=== PATIENT | male | born 1985 | race Caucasian/White ===

== ENCOUNTER 2017-09-25 11:09 | Day surgery (SDC) | payer MEDICAID ==
[~2017-09-25] VITALS: Ht 185.4 cm; Wt 125.2 kg
[~2017-09-25 11:09] MED LIST: [UNRECOGNIZED DRUG - CODE] PO
[2017-09-25] MEDS ORDERED: LACTATED RINGERS 1,000 ML IV SCH (12:03)
[2017-09-25 12:25] VITALS: BP 114/81
[2017-09-25] MEDS ORDERED: BUPIVACAINE 0.25% ONE (12:30)
[2017-09-25] MEDS ORDERED: LIDOCAINE-MPF 1%, 2ML INFIL ONE (12:30)
[2017-09-25] MEDS ORDERED: FENTANYL PF 100 MCG/2ML ONE (12:48)
[2017-09-25] MEDS ORDERED: MIDAZOLAM 1 MG/ML, 2ML ONE ×2 (12:49)
[2017-09-25] MEDS ORDERED: OXYcodone 5 MG/5 ML ORAL.SOL UDC PO PRN (13:00)
[2017-09-25] MEDS ORDERED: MEPERIDINE/PF 25MG/0.5ML IVPush PRN (13:00)
[2017-09-25] MEDS ORDERED: ONDANSETRON 2MG/ML, 2ML IVPush PRN (13:00)
[2017-09-25] MEDS ORDERED: LABETALOL 5MG/ML, 20ML IV PRN (13:00)
[2017-09-25] MEDS ORDERED: MIDAZOLAM 1 MG/ML, 2ML IV PRN (13:00)
[2017-09-25] MEDS ORDERED: FENTANYL PF 100 MCG/2ML IV PRN (13:00)
[2017-09-25] MEDS ORDERED: HYDROmorphone 1 MG/ML, 1ML IV PRN (13:00)
[2017-09-25] MEDS ORDERED: BUPIVACAINE/PF 0.5% ONE (13:02)
[2017-09-25] MEDS ORDERED: CEFAZOLIN 1,000 MG ONE ×2 (13:09)
[2017-09-25] MEDS ORDERED: METOCLOPRAMIDE 5 MG/ML, 2ML ONE (13:12)
[2017-09-25] MEDS ORDERED: DEXAMETHASONE 4 MG/ML, 1ML ONE (13:12)
[2017-09-25] MEDS ORDERED: ONDANSETRON 2MG/ML, 2ML ONE (13:12)
[2017-09-25] MEDS ORDERED: PROPOFOL 10 MG/ML, 20ML ONE (13:13)
[2017-09-25] MEDS ORDERED: LIDOCAINE-MPF 2% ,5ML ONE (13:13)
[2017-09-25] MEDS ORDERED: NEOSPORIN OINT, 15GM ONE (13:33)
[2017-09-25] MEDS ORDERED: OXYcodone/APAP 5/325MG TABLET PO PRN (14:00)
[2017-09-25] MEDS ORDERED: OXYcodone 5 MG/5 ML ORAL.SOL UDC ONE (14:13)
== END 2017-09-25 15:40 | disposition home or self-care (01) ==
LOC: OUT 11:09
PROVIDERS: ATTEND Urology
DX: N47.1 Phimosis (principal); F17.210 Nicotine dependence, cigarettes, uncomplicated; Z98.890 Other specified postprocedural states; Z87.890 Personal history of sex reassignment
CPT/HCPCS: 54161; J0690; J1100; J2250; J2405; J2704; J2765; J3010; J3490